=== PATIENT | female | born 1950 | race African-American/Black ===

== ENCOUNTER 2020-10-24 22:02 | Emergency (ER) | payer OTHER ==
[~2020-10-24] VITALS: Ht 167.6 cm; Wt 67.0 kg
[~2020-10-24 22:02] MED LIST: Metformin
[2020-10-25] MEDS ORDERED: KETOROLAC 30MG/ML VIAL IM STA (01:35)
[2020-10-25] MEDS ORDERED: IBUP-2029 MT (03:32)
[2020-10-25] MEDS ORDERED: METHOCARBAMOL 500MG TABLET PO ONE (04:15)
[2020-10-25] MEDS ORDERED: HYDROCODONE/ACETAMINOPHEN 10/325MG TABLET PO ONE (04:15)
[2020-10-25 04:19] VITALS: BP 138/78
== END 2020-10-25 04:20 | disposition home or self-care (01) ==
LOC: EDBD 22:02 → ER 22:02
DX: S09.8XXA Other specified injuries of head, initial encounter (principal); S30.0XXA Contusion of lower back and pelvis, initial encounter; E11.9 Type 2 diabetes mellitus without complications; I10 Essential (primary) hypertension; W18.39XA Other fall on same level, initial encounter; Y93.89 Activity, other specified; Y92.89 Other specified places as the place of occurrence of the external cause; Y99.8 Other external cause status; Z79.899 Other long term (current) drug therapy
CPT/HCPCS: 70450; 72170; 96372; 99284; J1885